=== PATIENT | male | born 1965 | race African-American/Black ===

== ENCOUNTER 2017-03-04 15:13 | Emergency (ER) | payer OTHER ==
[2017-03-04 15:22] VITALS: BP 111/61; PULSE 66; TEMP 98; BMI 23.7
[2017-03-04] MEDS ORDERED: IBUPROFEN 400 MG TABLET (FP) PO ONE ×2 (15:49→15:55)
--- NOTE | 2017-03-04 15:54 | PDOC ---
[id number] 4d BACK PAIN Time Seen by Provider: 03/04/17 15:40 History Source: Patient - History of Present Illness Initial Comments: 03/04/17 15:49 51 year old male c/o lower back pain after picking up boxes at home this morning. denies incontinence of bowel and urine, denies numbness or tingling to the lower extremity. history of chronic back pain. patient reports previous acute back pain resolved with physical therapy. denies surgeries Past History - Past Medical History Allergies/Adverse Reactions: Allergies Allergy/AdvReac Type Severity Reaction Status Date / Time No Known Allergies Allergy Verified 03/04/17 15:22 Home Medications: Ambulatory Orders Simvastatin 40 mg PO ASDIR 06/22/12 Cyclobenzaprine HCl [Flexeril 10 mg] 10 mg PO BID PRN #10 tablet 03/04/17 Ibuprofen 600 mg PO QID PRN #14 tablet 03/04/17 Hypercholesterolemia: Yes Other medical history: kidney disease - Immunization History Immunization Up to Date: No - Psycho/Social/Smoking Cessation Hx Anxiety: No Suicidal Ideation: No Smoking Status: No Smoking History: Never smoked Have you smoked in the past 12 months: No Number of Cigarettes Smoked Daily: 0 Information on smoking cessation initiated: No Hx Alcohol Use: No Drug/Substance Use Hx: No Substance Use Type: None Review of Systems - Review of Systems Able to Perform ROS?: Yes Is the patient limited Maltese proficient: No Constitutional: No: Symptoms Reported, See HPI, Chills, Diaphoresis, Fever, Loss of Appetite, Malaise, Night Sweats, Weakness, Weight Stable, Unintentional Wgt. Loss, Unexplained wgt Loss, Other Musculoskeletal: Yes: Back Pain, Muscle Pain (back) Integumentary: No: Symptoms Reported, See HPI, Bruising, Change in Color, Change in Hair/Nails, Dryness, Erythema, Flushing, Lesions, Lumps, Pallor, Pruritus, Rash, Sweating, Other Neurological: No: Symptoms reported, See HPI, Headache, Numbness, Paresthesia, Pre-Existing Deficit, Seizure, Tingling, Tremors, Weakness, Unsteady Gait, Ataxia, Dizziness, Other *Physical Exam - Vital Signs Last Vital Signs Temp Pulse Resp BP Pulse Ox 98.0 F 66 17 111/61 100 03/04/17 15:20 03/04/17 15:20 03/04/17 15:20 03/04/17 15:20 03/04/17 15:20 - Physical Exam General Appearance: Yes: Appropriately Dressed Respiratory/Chest: positive: Lungs Clear, Normal Breath Sounds Cardiovascular: positive: Regular Rhythm, Regular Rate Musculoskeletal: positive: Normal Inspection, Vertebral Tenderness (lumbar area) Extremity: positive: Normal Capillary Refill, Normal Inspection, Normal Range of Motion Integumentary: positive: Normal Color, Dry, Warm Neurologic: positive: Fully Oriented, Alert, Normal Mood/Affect, Normal Response , Motor Strength 03/18 ED Treatment Course - RADIOLOGY Radiograph Interpretation: 03/18/17 11:39 negative lumbar xray Progress Note - Progress Note Progress Note: Muscle spasm P: xray: negative pain management/ muscle relaxant. outpatient ortho follow up discussed with patient. strict return precautions reviewed with patient. *DC/Admit/Observation/Transfer Diagnosis at time of Disposition: Muscle spasm of back Back pain Qualifiers: Back pain location: low back pain Chronicity: acute Back pain laterality: midline Sciatica presence: without sciatica Qualified Code(s): M54.5 - Low back pain - Discharge Dispostion Disposition: HOME Condition at time of disposition: Stable - Prescriptions Prescriptions: Cyclobenzaprine HCl [Flexeril 10 mg] 10 mg PO BID PRN #10 tablet PRN Reason: Muscle Spasms Ibuprofen 600 mg PO QID PRN #14 tablet PRN Reason: Moderate Pain - Referrals Referrals: Ron Mahoney MD [Staff Physician] - - Patient Instructions Printed Discharge Instructions: DI for Muscle Strain Additional Instructions: take ibuprofen as prescribed. take Flexeril as prescribed for muscle spasms. do not drive or operate machinery after taking the medication follow up with orthopedic doctor as soon possible. - Post Discharge Activity Work/School Note: Back to Work
== END 2017-03-04 16:46 | disposition home or self-care (01) ==
LOC: SUPCPDRO 15:13 → JERFT 15:13
DX: M54.5 Low back pain (principal); X50.0XXA Overexertion from strenuous movement or load, initial encounter; Y93.89 Activity, other specified; Y92.098 Other place in other non-institutional residence as the place of occurrence of the external cause
CPT/HCPCS: 72100-TC; 99281-25

== ENCOUNTER 2017-03-28 12:30 | Emergency (ER) | payer OTHER ==
[2017-03-28 12:41] VITALS: BP 141/66; PULSE 90; TEMP 98.1; BMI 23.7
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
== END 2017-03-28 13:42 | disposition home or self-care (01) ==
LOC: JERFT 12:30
DX: Z77.21 Contact with and (suspected) exposure to potentially hazardous body fluids (principal); Y35.811A Legal intervention involving manhandling, law enforcement official injured, initial encounter; Y93.89 Activity, other specified; Y92.89 Other specified places as the place of occurrence of the external cause; Y99.0 Civilian activity done for income or pay
CPT/HCPCS: 99281-25

== ENCOUNTER 2018-12-29 07:17 | Emergency (ER) | payer OTHER ==
[2018-12-29 07:34] VITALS: BP 114/78; PULSE 72; BMI 23.7
[2018-12-29] MEDS ORDERED: ACETAMINOPHEN 325 MG TABLET (FP) PO ONE (07:39)
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
[2018-12-29] MEDS ORDERED: ACETAMINOPHEN 325 MG TABLET (FP) ONE (07:52)
== END 2018-12-29 08:10 | disposition home or self-care (01) ==
LOC: JER 07:17
DX: S49.92XA Unspecified injury of left shoulder and upper arm, initial encounter (principal); X58.XXXA Exposure to other specified factors, initial encounter; Y93.89 Activity, other specified; Y92.89 Other specified places as the place of occurrence of the external cause; Y99.0 Civilian activity done for income or pay; Y35.891A Legal intervention involving other specified means, law enforcement official injured, initial encounter
CPT/HCPCS: 99281-25